=== PATIENT | female | born 1945 | race Two or more races ===

== ENCOUNTER 2021-10-06 15:52 | Inpatient (IN) | payer OTHER ==
[~2021-10-06] VITALS: Ht 152.4 cm; Wt 53.5 kg
[~2021-10-06 15:52] MED LIST: CARAFATE1 GM/10 ML PO; CELEXA10 MG PO; COZAAR100 MG PO; CRESTOR10 MG PO; PEPCID AC20 MG PO; PRILOSEC OTC20 MG PO; TOPROL XL25 M1 PO; TRANXENE T-TAB7.5 MG PO
[2021-10-09] MEDS ORDERED: OMEPRAZOLE20 MG (07:51)
[2021-10-09] MEDS ORDERED: CLORAZEPATE D3.75 MG (07:51)
[2021-10-09] MEDS ORDERED: FLONASE16 GM (07:51)
[2021-10-09] MEDS ORDERED: HYDROCHLOROTH12.5 MG (07:51)
[2021-10-09] MEDS ORDERED: MONTELUKAST SOD10 MG (07:52)
== END 2021-10-10 16:26 | disposition home or self-care (01) | DRG 330 ==
LOC: O/R 10-09 06:23 → SURH 10-09 06:23
PROVIDERS: ADMIT Colon & Rectal Surgery; ATTEND Colon & Rectal Surgery
PROC: 0DN84ZZ Release Small Intestine, Percutaneous Endoscopic Approach (ICD-10-PCS; 2021-10-09)
PROC: 0DQP4ZZ Repair Rectum, Percutaneous Endoscopic Approach (ICD-10-PCS; principal; 2021-10-09 07:00)
DX: K62.3 Rectal prolapse (principal); K56.50 Intestinal adhesions [bands], unspecified as to partial versus complete obstruction; Z20.822 Contact with and (suspected) exposure to COVID-19

== ENCOUNTER 2021-12-18 10:00 | Day surgery (SDC) | payer OTHER ==
[~2021-12-18] VITALS: Ht 152.4 cm; Wt 52.2 kg
[~2021-12-18 10:00] MED LIST changes: +CLORAZEPATE D3.75 MG; +FLONASE16 GM; +HYDROCHLOROTH12.5 MG; +MONTELUKAST SOD10 MG; +OMEPRAZOLE20 MG
== END 2021-12-19 16:56 | disposition home or self-care (01) ==
LOC: CIR.AMB 10:00
PROVIDERS: ATTEND Colon & Rectal Surgery
DX: R15.9 Full incontinence of feces (principal); R32 Unspecified urinary incontinence; Z91.013 Allergy to seafood; Z88.6 Allergy status to analgesic agent; G43.909 Migraine, unspecified, not intractable, without status migrainosus; E78.5 Hyperlipidemia, unspecified; Z20.822 Contact with and (suspected) exposure to COVID-19; K62.3 Rectal prolapse
CPT/HCPCS: 64581; 95972; C1778

== ENCOUNTER 2022-01-01 06:18 | Day surgery (SDC) | payer OTHER | END 2022-01-01 10:45 | disposition home or self-care (01) | LOC: CIR.AMB 06:18 | PROVIDERS: ATTEND Colon & Rectal Surgery | DX: R15.9 Full incontinence of feces (principal); R32 Unspecified urinary incontinence; Z91.013 Allergy to seafood; Z88.6 Allergy status to analgesic agent; I10 Essential (primary) hypertension; Z20.822 Contact with and (suspected) exposure to COVID-19 ==

== ENCOUNTER 2022-02-14 10:28 | Emergency (ER) | payer OTHER ==
[~2022-02-14] VITALS: Ht 152.4 cm; Wt 51.7 kg
[2022-02-14] MEDS ORDERED: ORPHENADRINE C100 MG PO (16:17)
[2022-02-14] MEDS ORDERED: MEDROLPACK PO (16:17)
== END 2022-02-14 16:39 | disposition home or self-care (01) ==
LOC: ER 10:28
DX: M54.32 Sciatica, left side (principal); M54.89 Other dorsalgia; Z88.6 Allergy status to analgesic agent; I10 Essential (primary) hypertension

== ENCOUNTER 2022-07-06 06:27 | Day surgery (SDC) | payer OTHER ==
[~2022-07-06] VITALS: Ht 165.1 cm; Wt 50.8 kg
[~2022-07-06 06:27] MED LIST changes: +MEDROLPACK PO; +ORPHENADRINE C100 MG PO
== END 2022-07-06 13:10 | disposition home or self-care (01) ==
LOC: CIR.AMB 06:27
PROVIDERS: ATTEND Colon & Rectal Surgery
DX: R15.9 Full incontinence of feces (principal); G89.18 Other acute postprocedural pain; T85.111A Breakdown (mechanical) of implanted electronic neurostimulator of peripheral nerve electrode (lead), initial encounter; I10 Essential (primary) hypertension; Z88.6 Allergy status to analgesic agent; Z91.013 Allergy to seafood; E78.5 Hyperlipidemia, unspecified; Z20.822 Contact with and (suspected) exposure to COVID-19

== ENCOUNTER 2023-07-24 06:15 | Day surgery (SDC) | payer OTHER ==
[2023-07-16 10:13] LABS: HEMOGLOBIN 14.1 g/dL (12.0-15.00); MEAN CELL VOLUME 99.2 fL (80.00-100.00); MEAN CORPUSCULAR HEMOGLOBIN 33.3 pg (27.00-32.0); MEAN CORPUSCULAR HGB CONC 33.5 g/dl (32.0-36.0); PLATELET COUNT 163 K/uL (150-450); RED BLOOD COUNT 4.23 M/uL (4.00-6.00); RED CELL DISTRIBUTION WIDTH 12.6 % (11.5-14.5)
[2023-07-16 10:17] LABS: PH,URINE 6.5 (5.0-8.0); URINE APPEARANCE Clear; URINE BILIRRUBIN Negative (NEGATIVE); URINE BLOOD Negative; URINE COLOR Yellow; URINE GLUCOSE Negative (NEGATIVE); URINE LEUKOCYTE Negative; URINE NITRATE Negative; URINE PROTEIN Negative (NEGATIVE); URINE UROBILINOGEN 0.2 E.U./dl
[2023-07-16 10:21] LABS: URINE BACTERIA 32.7 uL (0.0-1933); URINE RBC 2.1 uL (0.0-20.8); URINE WBC 1.8 uL (0.0-23.2)
[2023-07-16 10:37] LABS: CALCIUM 9.2 mg/dL (8.5-10.1); CREATININE SERUM 0.74 mg/dL (0.55-1.02); GFR 75.51; POTASSIUM 3.82 mEq/L (3.5-5.1)
[2023-07-16 10:38] LABS: INR 0.98; PARTIAL THROMBOPLASTIN TIME 27.1 SECONDS (22.0-34.0); PROTHROMBIN TIME 10.3 SECONDS (9.0-11.5)
[2023-07-24] MEDS ORDERED: PERCOCET 5-3251 EACH PO (13:26)
== END 2023-07-24 15:54 | disposition home or self-care (01) ==
LOC: CIR.AMB 06:15
PROVIDERS: ATTEND Surgery
DX: K81.1 Chronic cholecystitis (principal); D68.8 Other specified coagulation defects; Z20.822 Contact with and (suspected) exposure to COVID-19; I10 Essential (primary) hypertension; Z88.6 Allergy status to analgesic agent; Z91.013 Allergy to seafood